=== PATIENT | female | born 1935 ===

== ENCOUNTER 2023-06-10 05:00 | Day surgery (SDC) | payer OTHER ==
[~2023-06-10 05:00] MED LIST: B12-FOLIC ACID1 EACH PO; KEPPRA750 MG PO; MAGNESIUM400 MG PO; NORVASC2.5 M1 PO; PLAVIX75 MG PO; SIMVASTATIN20 MG PO; ZESTRIL20 MG PO
== END 2023-06-10 14:30 | disposition home or self-care (01) ==
LOC: CIR.AMB 05:00
PROVIDERS: ATTEND Surgery
DX: D35.1 Benign neoplasm of parathyroid gland (principal); E21.0 Primary hyperparathyroidism; Z91.041 Radiographic dye allergy status; Z20.822 Contact with and (suspected) exposure to COVID-19